=== PATIENT | female | born 1980 | race Two or more races ===

== ENCOUNTER 2024-01-21 13:46 | Outpatient (AMB) | payer MEDICAID, SELFPAY ==
[2024-01-21 13:54] VITALS: BP 103/71; PULSE 66; RESP 19; TEMP 36.6; O2SAT 98; BMI 28.9
--- NOTE | 2024-01-21 13:54 | GSCOFFNT_ITS ---
Vital Signs - [facility] 01/21/24 13:54 Height 1.57 m Height Method Stated Weight 71.668 kg Weight Measurement Method Standing Scale BMI 28.9 BP 103/71 Blood Pressure Source Automatic Cuff Blood Pressure Location Left Upper Arm Position Sitting Respiration 19 Pulse 66 Pulse Source Monitor Temp 97.8 F Temp Source Temporal Artery Scan Pulse Oximetry (%) 98 Oxygen Delivery Method Room Air Med/Allergies Allergies & Medications Allergies No Known Allergies Allergy (Verified 01/21/24 13:56) Medication Reconciliation hydrocortisone acetate 25 mg rectal suppository (Anusol-HC) 25 mg LA QHS #24 ea 01/21/24 [Rx] MA Intake Visit Data Collection New Patient or Established: New Patient (never been to [facility]) Seen by Clinical Staff ONLY (RN/MA): No Reason for Visit:: FISTULA Pain Present Currently: No Hand Clerical Verifier Required: Yes PCP or OBGYN visit in last 3 months: Yes Hx Now: No Do You Feel Safe at Home: Yes Authorities Contacted: N/A Smoking Status Smoking Status: Never smoker Immunization / Flu Flu Vaccine in the Last 12 Months: No Flu Vaccine Exclusion Criteria: Refused by Patient Past Medical History Social History SMOKING STATUS: Smoking status: Never smoker HPI HPI Narrative Spoke to pt with in-person lines tender 43F referred for perianal discomfort. Pt reports for months she has noted a palpitation of the anus; it is not very painful but sometimes uncomfortable, she states she occasionally has bleeding but denies any itching. Pt states her BMs are usually small pieces and require lots of straining; she drinks 3-4 bottles of water daily but does not take any fiber supplement. She is not currently using any remedies for this year. She denies any change in stool caliber, anorexia and unintentional weight loss PMH: Paraspinal mass PSHx: Excisional of paraspinal mass Meds: No antiplt or anticoagulation Allergies: NKDA Social hx: no known CRC ROS Review of Systems Systems Reviewed: All systems reviewed, normal except as documented Objective/Exam General General Appearance: alert, cooperative and well groomed Resp Respiratory exam: Absent respiratory distress Rectal Rectal exam: Present normal inspection, normal rectal tone and other (internal hemorrhoids seen on anoscopy) Assessment & Plan Diagnosis / Problem List (1) Hemorrhoids: Status: Acute Plan 43F presenting with palpitation felt inside anus and findings of internal hemorrhoids on exam. I recommended pt increase water intake for a goal of 2-3L per day and initiate metamucil fiber. I will also prescribe anusol suppositories. Pt expressed understanding and will follow up in 6 weeks Office Procedures GNS Level of Care Nursing/Assessment Patient Status: Initial/New Patient Nursing Assessment/Reassesment: Medication Reconciliation, Update PMH in EMR and Vital Signs Coordination of Care: Complex Care and Chronic Disease 1-5, Consent,records obtained, informed consent, Education Simp Pt/Fam, Results/Orders obtained and Staff clarify orders New Patient Charge New Patient Point Assignment: [id number] Patient Portal Questionaires Social History Tobacco History Smoking Status: Never smoker Domestic Abuse History Do You Feel Safe at Home: Yes Review of Systems Report any current symptoms Only answer those that you have currently: Past Medical History Past Medical History Have you ever been diagnosed with any of the following:
== END 2024-01-21 14:24 | disposition home or self-care (01) ==
PROVIDERS: Supervising Provider Surgery; Visit Provider Surgery
DX: K64.8 Other hemorrhoids (principal)
CPT/HCPCS: 99203; G0463

== ENCOUNTER 2024-02-11 10:21 | Outpatient (RCR) | payer MEDICAID, SELFPAY ==
--- NOTE | 2024-02-11 10:37 | PT.OIERPT ---
PT OP Initial Eval Patient Information Outpatient Physical Therapy Treatment Date: 02/11/24 Visit Reasons: lOW BACK PAIN Medical Diagnosis: M54.5 Z85.848 Treatment Dx #1: LBP Start of Care: 02/11/24 Date of Onset: 11/14/23 Smoking Status Smoking Status: Never smoker Initial Assessment Subjective: Pt is 43 yr old swazi speaking female who reports LBP that she had prior to surgical tumor removal x3 in L/S. Since sx it has hurt worse in the L/S. When she is tired it's difficult to do HH chores and working picking oranges. PMH: lumbar tumor removal x3 Imaging: none available Pt goal: to decrease LBP Objective: ? Trunk ArOM: ? B SB 60% of normal without pain ? Extension: 30% of full with relief in prone ? Flexion: 10 from floor with LBP ? B rotation: 60% without pain ? TTP: moderate to high of incision scar and paraspinals L5-S1 ? Neuro: B SLR: negative Assessment: ? Pt presents with trunk flexion sensitivity and overlying myofascial pain ? and TTP of incision scar consistent with scar pain and ? lower lumbar disc bulge(s). Pt requires skilled therapy in order to decrease ? pain and improve sitting/standing tolerance and has fair rehab potential. Eval ?followed by HEP printout. Short Term and Skilled Nursing Goals ? 1. Ind with HEP ? 2. Improved sitting/standing tolerance to 30 minutes with <=4/10 LBP ? 3. Decreased lower paraspinal and scar TTP from mod to min 4. Improved HH chore tolerance to at least 30 minutes with <=3/10 LBP and no ?increase in LE ssx Treatment Plan 1. Manual therapy ? 2. Therex ? 3. Modalities as indicated, moist heat, ice, estim, mechanical traction Frequency and Duration: 1-2x a week for 12 visits Certification Dates: 02/11/24 to 05/09/24 Procedure Charges OP PT Eval Mod Complex 30 minutes: Yes
== END 2024-02-24 23:59 | disposition home or self-care (01) ==
LOC: CPTX 10:21
PROVIDERS: PCP Physician Assistant; Referring Provider Physician Assistant; Visit Provider Physician Assistant
DX: M54.50 Low back pain, unspecified (principal); Z85.848 Personal history of malignant neoplasm of other parts of nervous tissue
CPT/HCPCS: 97162

== ENCOUNTER 2024-03-01 15:32 | Outpatient (AMB) | payer MEDICAID, SELFPAY ==
--- NOTE | 2024-03-01 15:40 | GSCOFFNT_ITS ---
Vital Signs - [facility] 03/01/24 15:43 Height 1.57 m Height Method Stated Weight 72.263 kg Weight Measurement Method Standing Scale BMI 29.2 BP 107/74 Blood Pressure Source Automatic Cuff Blood Pressure Location Left Upper Arm Position Sitting Respiration 18 Pulse 71 Pulse Source Monitor Temp 97.3 F Temp Source Temporal Artery Scan Pulse Oximetry (%) 98 Oxygen Delivery Method Room Air Med/Allergies Allergies & Medications Allergies No Known Allergies Allergy (Verified 03/01/24 16:05) Medication Reconciliation hydrocortisone acetate 25 mg rectal suppository (Anusol-HC) 25 mg AR QHS #24 ea 01/21/24 [Rx Confirmed 03/01/24] MA Intake Visit Data Collection New Patient or Established: Established Patient (seen at [facility] within 3 years) Seen by Clinical Staff ONLY (RN/MA): No Reason for Visit:: F/U HEMORRHOIDS Pain Present Currently: No Pain scale:: 0 Supervisor Sawmill Required: Yes PCP or OBGYN visit in last 3 months: Yes Hx Now: No Do You Feel Safe at Home: Yes Authorities Contacted: N/A Smoking Status Smoking Status: Never smoker Immunization / Flu Flu Vaccine in the Last 12 Months: Yes Flu Vaccine Exclusion Criteria: No Exclusion Criteria Past Medical History Social History SMOKING STATUS: Smoking status: Never smoker HPI HPI Narrative Spoke to pt with in-person full time staff interpreter 43F here for follow up of perianal discomfort. Pt reports she feels the same sensation in the anus which she describes as tapping ; she denies outright pain, states she has minimal bleeding and no itching. She states her BMs are still small pieces requiring straining; she used suppositories for 4 days and felt they were not helpful but actually made her feel worse. She is not using any remedies including sitz baths, is still drinking 3-4 bottles of water daily and not taking any fiber. ROS Review of Systems Systems Reviewed: All systems reviewed, normal except as documented Objective/Exam General General Appearance: alert, cooperative and well groomed Resp Respiratory exam: Absent respiratory distress Assessment & Plan Diagnosis / Problem List (1) Rectal discomfort: Status: Acute Assessment & Plan: 43F presenting with several-month history of history of rectal discomfort, refractory to conservative measures. She is very concerned about these symptoms so I explained that a colonoscopy would allow direct visualization of the area. I enumerated risks of colonoscopy including bleeding, perforation and/or the need to abort for safety. Pt expressed understanding and is eager to proceed. In the meantime I reiterated she should increase her water intake for a goal of 2L per day, initiate metamucil fiber and take sitz baths up to TID Office Procedures GNS Level of Care Nursing/Assessment Patient Status: Established Patient Nursing Assessment/Reassesment: Medication Reconciliation, Update PMH in EMR and Vital Signs Coordination of Care: Complex Care and Chronic Disease 1-5, Consent,records obtained, informed consent, Education Simp Pt/Fam, Results/Orders obtained and Staff clarify orders Special Needs: Language special needs Established Patient Charge Established Patient Point Assignment: 90 Established Patient Point Charge: EP Level 3 (80-115) Patient Portal Questionaires Social History Tobacco History Smoking Status: Never smoker Domestic Abuse History Do You Feel Safe at Home: Yes Review of Systems Report any current symptoms Only answer those that you have currently: Past Medical History Past Medical History Have you ever been diagnosed with any of the following:
[2024-03-01 15:43] VITALS: BP 107/74; PULSE 71; RESP 18; TEMP 36.3; O2SAT 98; BMI 29.2
== END 2024-03-01 16:02 | disposition home or self-care (01) ==
LOC: HODSRG 15:32
PROVIDERS: Supervising Provider Surgery; Visit Provider Surgery
DX: K62.89 Other specified diseases of anus and rectum (principal)
CPT/HCPCS: 99213; G0463

== ENCOUNTER 2024-03-11 09:05 | Day surgery (SDC) | payer MEDICAID, SELFPAY ==
[2024-03-10 10:43] LABS: HCG Qualitative,Urine Negative
[2024-03-10 14:43] VITALS: BMI 29.2
[2024-03-11] VITALS (14 sets, daily range): BP systolic 98–131; BP diastolic 51–83; PULSE 70–97; RESP 12–23; TEMP 36.1–36.5; O2SAT 97–100; BMI 28.5
[2024-03-11] MEDS: DiphenhydrAMINE INJ 50 MG/ML VIAL 25 MG IV (10:50)
[2024-03-11] MEDS: fentaNYL CIT INJ 50 mCg/ML AMP 2ML (ASD USE ONLY) IV (11:02)
[2024-03-11] MEDS: MIDAZOLAM INJ 1 MG/ML VIAL 2 ML (ASD USE ONLY) 2 MG IV (11:11)
--- NOTE | 2024-03-11 11:28 | SUR.PHASEII ---
1128: pt received from [place] via [facility]. received report from LUIS ARMANDO Maciel. Pt sleeping at this time. no s/s of pain or discomfort. no s/s of resp. distress or discomfort.
--- NOTE | 2024-03-11 12:10 | SUR.PHASEII ---
1210: pt able to ambulate to bathroom with assist without any difficulty.
--- NOTE | 2024-03-11 12:25 | SUR.PHASEII ---
1225: discharge instructions given to daughter and pt in stateless by LUIS ARMANDO Harrington as plate driller, verbalizes understanding.
--- NOTE | 2024-03-11 12:28 | SUR.PHASEII ---
1228: pt discharge to home via wheelchair accompanied by daughter. pt alert and oriented x3. denies any pain or discomfort. no s/s of resp. distress or discomfort. all belongings brought given back to patient.
== END 2024-03-11 12:28 | disposition home or self-care (01) ==
PROVIDERS: PCP Physician Assistant; Referring Provider Surgery; Visit Provider Surgery
PROC: 0DBE8ZX Excision of Large Intestine, Via Natural or Artificial Opening Endoscopic, Diagnostic (ICD-10-PCS; CPT 45380; principal; 2024-03-11 10:00)
DX: K62.89 Other specified diseases of anus and rectum (principal); D12.3 Benign neoplasm of transverse colon; D12.5 Benign neoplasm of sigmoid colon; K64.8 Other hemorrhoids
CPT/HCPCS: 45385; 81025; A4649; J1200; J2250; J3010

== ENCOUNTER 2024-03-24 10:00 | Outpatient (RCR) | payer MEDICAID, SELFPAY ==
--- NOTE | 2024-03-02 10:40 | PT.ODAYNRPT ---
PT Outpatient Daily Note OP Daily Note Outpatient Physical Therapy Treatment Date: 03/02/24 Visit Reasons: Low back pain Subjective: Pt reports low back pain and numbing on the mid and lateral lumbar region. Pt shared she also gets symptoms down her leg. Objective: Please see flow sheet for ther ex list. Assessment: Pt instructed on repeated lumbar extension for HEP, pt able to replicate with good technique. Plan: Continue with POC. Length of Time (minutes) of Treatment: 30 Minutes Procedure Charges Therapeutic Exercise 30 minutes: Yes
--- NOTE | 2024-03-09 10:58 | PTNOTE_ITS ---
PT Outpatient Daily Note OP Daily Note Outpatient Physical Therapy Treatment Date: 03/09/24 Visit Reasons: Low back pain Subjective: Pt reports compliance with HEP, mentioned back feels a little better post performing HEP. Objective: Please see flow sheet for ther ex list. Assessment: Added interventions completed with good tolerance. Pt encouraged to continue wi th performance of HEP. Plan: Continue with POC. Length of Time (minutes) of Treatment: 30 Minutes Procedure Charges Therapeutic Exercise 30 minutes: Yes
--- NOTE | 2024-03-17 10:47 | PT.ODAYNRPT ---
PT Outpatient Daily Note OP Daily Note Outpatient Physical Therapy Treatment Date: 03/17/24 Visit Reasons: Low back pain Subjective: Continued pain around and over scar Objective: See F/S for therex MT: STM incision scar x7' Assessment: Min/mod TTP of scar with MT Plan: Decrease scar TTP Length of Time (minutes) of Treatment: 30 Minutes Procedure Charges Therapeutic Exercise 30 minutes: Yes
--- NOTE | 2024-03-24 10:39 | PT.ODAYNRPT ---
PT Outpatient Daily Note OP Daily Note Outpatient Physical Therapy Treatment Date: 03/24/24 Visit Reasons: Low back pain Subjective: Pt reports low back pain continues to be present. c.o low back pain and pain in between shoulder blades. Objective: Please see flow sheet for ther ex list. Assessment: Pt TTP around incision on lumbar spine, held STM on or around incision as per pt request. Pt educated on desensitizing incision and to try to perform STM and scar mobs on self to tolerance, pt agreed. Plan: Continue with POC. Length of Time (minutes) of Treatment: 30 Minutes Procedure Charges Therapeutic Exercise 30 minutes: Yes
== END 2024-03-26 23:59 | disposition home or self-care (01) ==
LOC: CPTX 10:00
PROVIDERS: PCP Physician Assistant; Referring Provider Physician Assistant; Visit Provider Physician Assistant
DX: M54.50 Low back pain, unspecified (principal); Z85.848 Personal history of malignant neoplasm of other parts of nervous tissue
CPT/HCPCS: 97110

== ENCOUNTER 2024-03-25 09:34 | Outpatient (AMB) | payer MEDICAID, SELFPAY ==
[2024-03-25 10:17] VITALS: BP 104/70; PULSE 85; RESP 18; TEMP 36.6; O2SAT 97; BMI 28.7
--- NOTE | 2024-03-25 10:17 | PD.GSCLVISIT ---
Vital Signs - [facility] 03/25/24 10:17 Height 1.57 m Height Method Stated Weight 70.817 kg Weight Measurement Method Standing Scale BMI 28.7 BP 104/70 Blood Pressure Source Automatic Cuff Blood Pressure Location Right Upper Arm Position Sitting Respiration 18 Pulse 85 Pulse Source Monitor Temp 97.9 F Temp Source Temporal Artery Scan Pulse Oximetry (%) 97 Oxygen Delivery Method Room Air Med/Allergies Allergies & Medications Allergies No Known Allergies Allergy (Verified 03/25/24 10:18) Medication Reconciliation ergocalciferol (vitamin D2) 1,250 mcg (50,000 unit) capsule 1,250 mcg PO QWEEK 03/10/24 [History Confirmed 03/25/24] hydrocortisone 2.5 % topical cream with perineal applicator 1 applic [place] QD-BID PRN hemorrhoids #30 grams 03/25/24 [Rx] MA Intake Visit Data Collection New Patient or Established: Established Patient (seen at [facility] within 3 years) Seen by Clinical Staff ONLY (RN/MA): No Pain Present Currently: No Ophthalmic Asst Required: Yes PCP or OBGYN visit in last 3 months: Yes Hx Now: No Do You Feel Safe at Home: Yes Authorities Contacted: N/A Smoking Status Smoking Status: Never smoker Immunization / Flu Flu Vaccine in the Last 12 Months: Yes Flu Vaccine Exclusion Criteria: Already Received Past Medical History Past Medical History NEUROLOGIC: Negative Neurological Disorders or Seizures CARDIAC: Negative Cardiac Disorders or Congestive Heart Failure RESPIRATORY: Negative Chronic Obstructive Pulmonary Disease (COPD) or Tuberculosis GASTROINTESTINAL: Positive Gastrointestinal Disorders (ABDOMINAL DISCOMFORT) GENITOURINARY: Negative Genitourinary Disorders or Renal Disease REPRODUCTIVE: Positive Previous Pregnancies ENDOCRINE: Negative Endocrine Disorders, Diabetes Mellitus Type 1 or Diabetes Mellitus Type 2 HEMATOLOGIC: Negative Blood Disorders or Anemia OTHER HISTORY: Negative Falls, Blood Transfusions, Anesthesia Reactions, Chicken Pox or Cancer Social History SMOKING STATUS: Smoking status: Never smoker ALCOHOL: Alcohol Intake: Never HOUSING: Housing: House HPI HPI Narrative Spoke to pt with in-person professor of art 43F with symptomatic hemorrhoids now s/p diagnostic colonoscopy for rectal discomfort here to discuss results. Pt reports feeling well overall, her hemorrhoids are not so bothersome that she would like to have surgery. She purchased metamucil but has not yet started it, is not currently using any remedies as she felt the suppositories made her symptoms worse ROS Review of Systems Systems Reviewed: All systems reviewed, normal except as documented Objective/Exam General General Appearance: alert, cooperative and well groomed Resp Respiratory exam: Absent respiratory distress Results Colonoscopy report reviewed Pathology report: tubular adenoma x2 <1cm Assessment & Plan Diagnosis / Problem List (1) Encounter to discuss colonoscopy results: Status: Acute Assessment & Plan: 43F s/p diagnostic colonoscopy with findings of two tubular adenoma <1cm, requiring surveillance colonoscopy in 7 years (2) Hemorrhoids: Status: Acute Assessment & Plan: Pt states her symptoms are controlled and she is not interested in having surgery which is very reasonable. I encouraged her to initiate metamucil daily, drink more water if it causes her to feel bloated and will prescribe hydrocortisone cream. All questions were answered and pt is encouraged to follow up as needed Office Procedures GNS Level of Care Nursing/Assessment Patient Status: Established Patient Nursing Assessment/Reassesment: Medication Reconciliation, Update PMH in EMR and Vital Signs Coordination of Care: Complex Care and Chronic Disease 1-5, Consent,records obtained, informed consent, Education Simp Pt/Fam, Results/Orders obtained and Staff clarify orders Special Needs: Language special needs Established Patient Charge Established Patient Point Assignment: 90 Established Patient Point Charge: EP Level 3 (80-115) Patient Portal Questionaires Social History Living Situation History Housing: House Tobacco History Smoking Status: Never smoker Alcohol History Alcohol Intake: Never Domestic Abuse History Do You Feel Safe at Home: Yes Review of Systems Report any current symptoms Only answer those that you have currently: Past Medical History Past Medical History Have you ever been diagnosed with any of the following: Neurological Problems Seizures: No Cardiology Problems Congestive Heart Failure: No Respiratory Problems Chronic Obstructive Pulmonary Disease (COPD): No Tuberculosis: No Genital/Urinary Problems Renal Disease: No Reproductive Problems Previous Pregnancies: Yes Endocrine Problems Diabetes Mellitus Type 1: No Diabetes Mellitus Type 2: No Blood Problems Anemia: No Other Problems Falls: No Blood Transfusions: No Anesthesia Reactions: No Chicken Pox: No Cancer: No
== END 2024-03-25 10:50 | disposition home or self-care (01) ==
LOC: HODSRG 09:34
PROVIDERS: PCP Physician Assistant; Referring Provider Physician Assistant; Supervising Provider Surgery; Visit Provider Surgery
DX: Z71.2 Person consulting for explanation of examination or test findings (principal); D12.6 Benign neoplasm of colon, unspecified; K64.9 Unspecified hemorrhoids
CPT/HCPCS: 99213; G0463

== ENCOUNTER 2024-03-31 09:42 | Outpatient (RCR) | payer MEDICAID, SELFPAY ==
--- NOTE | 2024-03-31 13:55 | PT.ODS1RPT ---
PT OP Progress/Discharge Note Date of Service: 03/31/24 Progress Note/DC Note Progress Note/Discharge Note: DC Note Patient Information Visit Reasons: low back pain Service Continue Service or Discharge: Discharge Discharge Date: 03/31/24 Status Subjective: Not much change in LBP since starting therapy, about the same. Objective: Trunk AROM: FB: 10 from floor Extension: 30% of full TTP: moderate of incision scar Assessment: Pt attended 6/6 Rx sessions with limited progress with therapy goals due to continued LBP. She is not making progress with goals. The incision scar seems to be less tender but still hurts and she says the back pain hasn't improved. Pt may benefit from further diagnostic imaging of L/S. Plan: D/C Procedure Charges Therapeutic Exercise 30 minutes: Yes
== END 2024-04-23 23:59 | disposition home or self-care (01) ==
LOC: CPTX 09:42
PROVIDERS: PCP Physician Assistant; Referring Provider Physician Assistant; Visit Provider Physician Assistant
DX: M54.50 Low back pain, unspecified (principal); Z85.848 Personal history of malignant neoplasm of other parts of nervous tissue
CPT/HCPCS: 97110

== ENCOUNTER → 2024-05-26 | Outpatient (CLI) | payer MEDICAID, SELFPAY ==
--- NOTE | 2024-05-26 15:29 | XR_ITS ---
Examination: MRI lumbar spine without contrast Date and time of exam: May 26, 2024 at 1637 hours INDICATIONS: Low back pain for years numbness in the left foot Technique: Multiple MRI axial and sagittal sections lumbar spine. Sagittal T2-weighted images, TR 3500, TE 118 T1 weighted transverse sections, TR 688 T8.5, T2-weighted sagittal sections T1 weighted sagittal sections TR 621, TE 30 T2 axial sections, TR 4, 190, TE 84. Findings: Adequate alignment lumbar vertebral bodies on the lateral view No lumbar fracture. Normal marrow signal lumbar vertebral bodies No spondylolisthesis Axial images demonstrate no focal lumbar disc protrusion IMPRESSION: No lumbar fracture Satisfactory alignment lumbar vertebral bodies No focal lumbar disc protrusion noted
== END | disposition home or self-care (01) ==
LOC: SMRI 14:53
PROVIDERS: PCP Physician Assistant; Referring Provider Physician Assistant; Visit Provider Physician Assistant
DX: M54.50 Low back pain, unspecified (principal); M54.15 Radiculopathy, thoracolumbar region
CPT/HCPCS: 72148